=== PATIENT | male | born 1945 | race Caucasian/White ===

== ENCOUNTER 2017-04-24 09:20 | Observation (INO) | payer OTHER ==
[~2017-04-24] VITALS: Ht 172.7 cm; Wt 78.9 kg
[2017-04-24 10:25] LABS: MCH 28.4 PG (29.0-34.0); MCHC 33.8 G/DL (30.0-36.0); MCV 84.1 FL (86-99); MEAN PLAT.VOLUME 11.2 uM^3 (9.0-12.4); PLATELET COUNT 224 K/uL (156-360); RBC DIS.WIDTH-CV 12.8 % (11.8-14.6); RBC DIS.WIDTH-SD 39.1 % (39-53); RED BLOOD COUNT 4.64 M/uL (4.00-5.50); WHITE BLOOD COUNT 9.7 K/uL (4.1-10.2)
[2017-04-24 10:45] LABS: CHLORIDE 103 mEq/L (99-109); POTASSIUM 5.1 mEq/L (3.7-5.4); SODIUM 132 mEq/L (136-147)
[2017-04-24 10:46] LABS: GLUCOSE 302 mg/dL (70-99)
[2017-04-24 10:48] LABS: ANION GAP 6 MEQ/L (2-14)
[2017-04-24 10:50] LABS: GFR ESTIMATE (CALCULATED) 49 mL/min/
[2017-04-24 10:51] LABS: UREA NITROGEN (BUN) 35 mg/dL (9-23)
[2017-04-24] MEDS ORDERED: GABAPENTIN600 MG PO (12:51)
[2017-04-24] MEDS ORDERED: TIZANIDINE HCL4 MG PO (12:53)
[2017-04-24] MEDS ORDERED: LOPRESSOR100 M1 PO (12:53)
[2017-04-24] MEDS ORDERED: MUPIROCIN22 GM TP (12:53)
[2017-04-24] MEDS ORDERED: LISINOPRIL20 MG PO (12:53)
[2017-04-24] MEDS ORDERED: LEVEMIR FL100 UNIT/1 SC (12:54)
[2017-04-24] MEDS ORDERED: ATORVASTATIN CA80 MG PO (12:54)
[2017-04-24] MEDS ORDERED: ASPIRIN EC325 MG PO (12:55)
[2017-04-24] MEDS ORDERED: MECLIZINE HCL25 MG PO (12:55)
[2017-04-24] MEDS ORDERED: NITROSTAT0.4 MG SL (12:55)
[2017-04-24] MEDS ORDERED: NOVOLOG PE100 UNITS/ SC (12:55)
[2017-04-24 13:52] VITALS: BP 149/65
[2017-04-24 14:00] LABS: TROP-I INTERPRETATION NEGATIVE; TROPONIN-I < 0.01 ng/mL (0.0-0.30)
[2017-04-24 14:33] LABS: SAMPLE HEMOLYSIS CHECK 0; SAMPLE ICTERIC CHECK 0; SAMPLE LIPEMIA CHECK 0
[2017-04-24 14:38] LABS: HDL CHOLESTEROL 34 MG/DL (Desirable>=40); LDL CHOLESTEROL 58 mg/dL (Desirable<100); NON-HDL CHOLESTEROL 112 mg/dL (Desirable<160); TOTAL CHOLESTEROL 146 mg/dL (Desirable<200); TRIGLYCERIDES 269 MG/DL (Normal: <150)
[2017-04-24 15:21] LABS: Estimated Average Glucose 344 mg/dL (70-123); HEMOGLOBIN A1c (GLYCOHEMOGLOB) 13.6 % HGB (Below 5.7)
[2017-04-24 17:44] LABS: POINT-OF-CARE METER ID UU13113831
[2017-04-24 19:30] VITALS: BP 1323/71
[2017-04-24 19:46] LABS: TROP-I INTERPRETATION NEGATIVE; TROPONIN-I 0.01 ng/mL (0.0-0.30)
[2017-04-24 21:02] LABS: POINT-OF-CARE METER ID UU13113831
[2017-04-24 23:30] VITALS: BP 99/56
[2017-04-25 01:01] LABS: TROP-I INTERPRETATION NEGATIVE; TROPONIN-I < 0.01 ng/mL (0.0-0.30)
[2017-04-25 04:17] VITALS: BP 96/55
[2017-04-25 08:03] LABS: POINT-OF-CARE METER ID UU13113831
[2017-04-25 08:16] VITALS: BP 122/67
[2017-04-25 11:57] VITALS: BP 128/64
[2017-04-25] MEDS ORDERED: CLOPIDOGREL75 MG PO (12:24)
[2017-04-25 12:43] LABS: POINT-OF-CARE METER ID UU13113831
== END 2017-04-25 13:10 | disposition home or self-care (01) ==
LOC: EME 09:20 → EDOF 12:05 → 5WEST 12:05
PROVIDERS: Emergency Medicine; Hospitalist; Internal Medicine
DX: G45.9 Transient cerebral ischemic attack, unspecified (principal); R47.81 Slurred speech; R26.0 Ataxic gait; R42 Dizziness and giddiness; E11.9 Type 2 diabetes mellitus without complications; Z79.4 Long term (current) use of insulin; I11.0 Hypertensive heart disease with heart failure; I50.9 Heart failure, unspecified; I25.10 Atherosclerotic heart disease of native coronary artery without angina pectoris; Z95.1 Presence of aortocoronary bypass graft; Z87.891 Personal history of nicotine dependence; M19.90 Unspecified osteoarthritis, unspecified site; E78.5 Hyperlipidemia, unspecified; I25.2 Old myocardial infarction
CPT/HCPCS: 70450; 70551; 71020; 80048; 80061; 82948; 83036; 84443; 84484; 85027; 93005; 93306; 93880; 99281; 99284; G0378; J1650; J1815